=== PATIENT | male | born 1975 | race African-American/Black ===

== ENCOUNTER 2023-07-06 08:26 | Emergency (ER) | payer BC ==
[2023-07-06] MEDS ORDERED: Orphenadrine 60 MG/2 ML Inj IM ONE (10:01)
[2023-07-06] MEDS ORDERED: Lidocaine 4% 1 each Patch TOP STA (10:01)
== END 2023-07-06 11:16 | disposition home or self-care (01) ==
LOC: MW.ED 08:26
DX: S46.912A Strain of unspecified muscle, fascia and tendon at shoulder and upper arm level, left arm, initial encounter (principal); I10 Essential (primary) hypertension; Z88.8 Allergy status to other drugs, medicaments and biological substances; Z79.899 Other long term (current) drug therapy; X58.XXXA Exposure to other specified factors, initial encounter
CPT/HCPCS: 71046; 93005; 96372; 99283; A9270; J2360

== ENCOUNTER 2024-07-07 09:57 | Day surgery (SDC) | payer BC ==
[2024-07-07] MEDS: Lactated Ringers 1,000 ML IV SCH (10:55)
[2024-07-07] MEDS ORDERED: Lidocaine 2% 5 ML SDV ONE ×2 (11:19→11:20)
[2024-07-07] MEDS ORDERED: propofoL 500 MG/50 ML 50 ML ONE (11:21)
[2024-07-07] MEDS ORDERED: Propofol 200 MG/20 ML SDV ONE (13:05)
[2024-07-07] MEDS ORDERED: Lactated Ringers 1,000 ML IV SCH (13:30)
== END 2024-07-07 14:42 | disposition home or self-care (01) ==
LOC: MW.SDS 09:57
PROVIDERS: ATTEND Surgery
DX: D12.0 Benign neoplasm of cecum (principal); K64.8 Other hemorrhoids; I10 Essential (primary) hypertension; J45.909 Unspecified asthma, uncomplicated; Z87.891 Personal history of nicotine dependence; Z79.899 Other long term (current) drug therapy
CPT/HCPCS: 45380; J2704; J7120; 00811; J3490